=== PATIENT | male | born 1985 | race Two or more races ===

== ENCOUNTER 2024-07-24 11:09 | Emergency (ER) | payer OTHER ==
[~2024-07-24] VITALS: Ht 175.3 cm; Wt 78.0 kg
[2024-07-24] MEDS ORDERED: KETOROLAC TROMETHAMINE 15 MG/ML VIAL ONE (12:54)
[2024-07-24] MEDS: KETOROLAC TROMETHAMINE 15 MG/ML VIAL IM ONE (13:01)
[2024-07-24] MEDS ORDERED: KETO10TA2 PO (13:15)
[2024-07-24] MEDS ORDERED: FAMO20TA80 PO (13:15)
[2024-07-24 14:05] VITALS: BP 134/88; TEMP 97.8; O2SAT 98
== END 2024-07-24 14:05 | disposition home or self-care (01) ==
LOC: ER 12:09
DX: M94.0 Chondrocostal junction syndrome [Tietze] (principal)
CPT/HCPCS: 99283; 71045; 96372; 93005; J1885